=== PATIENT | male | born 1955 | race Caucasian/White ===

== ENCOUNTER 2016-08-25 07:30 | Emergency (ER) | payer BC ==
[2016-08-25 07:56] VITALS: BP 131/82
--- NOTE | 2016-08-25 08:07 | UC ---
Leatha Simons Alok, scribed for Tl Ahumada MD on 08/25/16 at 0756 . Upper Extremity HPI - HPI Summary HPI Summary: 61M presents to the [facility] with swelling on his right elbow. 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 Pt denies pain or erythema. Pt states he has had this swelling before and was said to be gout related. PMHx includes HTN and HTD. PSHx includes triple hernia and ankle fusion. - History of Current Complaint Stated Complaint: ELBOW COMPLAINT-SWELLING Time Seen by Provider: 08/25/16 07:43 Hx Obtained From: Patient ?: No Onset/Duration: Gradual Onset, Lasting Days, Still Present Severity Initially: Moderate Severity Currently: Moderate Pain Intensity: 0 Pain Scale Used: 0-10 Numeric Location Of Pain: Is Discrete @ - right elbow Aggravating Factor(s): Movement Associated Signs And Symptoms: Positive: Swelling. Negative: Redness - Allergies/Home Medications Allergies/Adverse Reactions: Allergies Allergy/AdvReac Type Severity Reaction Status Date / Time No Known Allergies Allergy Verified 08/25/16 07:44 Home Medications: Home Medications Lisinopril/HCTZ 20/12.5(NF) [Zestoretic 20/12.5(NF)] 1 tab PO DAILY 08/25/16 [ History Confirmed 08/25/16] Meloxicam 7.5 mg PO BID 08/25/16 [History Confirmed 08/25/16] PMH/Surg Hx/FS Hx/Imm Hx Endocrine History Of: Denies: Diabetes Cardiovascular History Of: Denies: Hypertension, Pacemaker/ICD GI/ History Of: Denies: Renal Disease - Surgical History Surgical History: Yes Surgery Procedure, Year, and Place: 1992 TRIPLE HERNIA [id number] Rt ANKLE FUSEDHAND - Family History Known Family History: Positive: Other - No - Malignant Hypothermia - Social History Occupation: Employed Full-time Lives: With Family Alcohol Use: Occasionally Substance Use Type: None Smoking Status (MU): Former Smoker Type: Cigarettes Have You Smoked in the Last Year: No Review of Systems Constitutional: Negative Skin: Other - swelling right elbow All Other Systems Reviewed And Are Negative: Yes Physical Exam Triage Information Reviewed: Yes Appearance: Well-Appearing, No Pain Distress, Well-Nourished Vital Signs: Initial Vital Signs Temp 97.6 F 08/25/16 07:47 Pulse 78 08/25/16 07:47 Resp 16 08/25/16 07:47 BP 131/82 08/25/16 07:47 Pulse Ox 98 08/25/16 07:47 Eye Exam: Normal ENT Exam: Normal Respiratory: Positive: Lungs clear, Normal breath sounds, No respiratory distress Cardiovascular: Positive: RRR, No Murmur Musculoskeletal: Positive: Other: - The right elbow is with effusion to the olecranon bursa. There is no increased warmth, no redness, and no pain at all on range of motion. He has no effusion of the elbow joint itself. Neuro vasc intact right hand. Neurological: Positive: Alert Psychological: Positive: Age Appropriate Behavior Skin Exam: Normal Upper Extremity Course/Dx - Course Course Of Treatment: 61 yr old male with effusion right olecrenon bursa elbow that is from overuse. Not infected at this point and not painful. recommend leave alone today, and cool compresses. Use is NSAID he has, and he can see Dr Angeles, his orthopedic surgeon in follow up. - Differential Dx/Diagnosis Provider Diagnoses: Right elbow, olecranon bursitis with effusion of olecranon bursa Discharge - Discharge Plan Condition: Good Disposition: HOME Patient Education Materials: Elbow Bursitis (ED) Referrals: Bill Angeles MD [Medical Doctor] - Bill Manley MD [Primary Care Provider] - 1 Day The documentation as recorded by the Leatha donahue Alok accurately reflects the service I personally performed and the decisions made by , Tl Ahumada MD.
== END 2016-08-25 08:09 | disposition home or self-care (01) ==
LOC: UCEAST 07:30
DX: M70.821 Other soft tissue disorders related to use, overuse and pressure, right upper arm (principal); Y93.89 Activity, other specified; M25.421 Effusion, right elbow; Z87.891 Personal history of nicotine dependence
CPT/HCPCS: 99211; G0463

== ENCOUNTER 2017-01-13 07:08 | Emergency (ER) | payer BC ==
[2017-01-13 07:24] VITALS: BP 111/70
--- NOTE | 2017-01-13 07:46 | UC ---
Dex Simons Angela, scribed for Nova Arriaga MD on 01/13/17 at 0734 . Upper Extremity HPI - HPI Summary HPI Summary: This pt is a 61 y/o male presenting to [facility] c/o erythematous right forearm x1 day. 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 He states that he had just drawn the vaccine into the needle but had not vaccinated the cattle yet. Pt notes initially his arm became swollen and it was fine for 2 days. He noticed last night, his right forearm became erythematous but it is not tender. Pt has an upcoming knee surgery on 01/25/[address] Mayfield for a meniscus tear and has a pre-op appointment next week. He is concerned that this may interfere with his upcoming surgery. Pt denies fever, chills, headaches. PMHx: HTN (currently takes lisinopril). NKDA. Tetanus up to date, confirmed by PMD earlier this week. 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 Previously Healthy: Yes Other Endocrine History: DENIES: diabetes Cardiovascular History: Hypertension - Surgical History Surgical History: Yes Surgery Procedure, Year, and Place: 1992 TRIPLE HERNIA. 2010 Rt ANKLE FUSION - Family History Known Family History: Positive: Other - No - Malignant Hypothermia. Father of Alzheimer's disease Family History: Father: Alzheimer's disease. - Social History Occupation: Employed Full-time Lives: With Family Alcohol Use: Occasionally Substance Use Type: None Smoking Status (MU): Former Smoker Type: Cigarettes Have You Smoked in the Last Year: No Review of Systems Constitutional: Negative Skin: Other - erythematous right forearm Eyes: Negative ENT: Negative Respiratory: Negative Cardiovascular: Negative Gastrointestinal: Negative Genitourinary: Negative Motor: Negative Neurovascular: Negative Musculoskeletal: Arthralgia - pending knee arthroscopy, Other: - RUE: swollen right forearm. Neurological: Negative Psychological: Negative Is Patient Immunocompromised?: No All Other Systems Reviewed And Are Negative: Yes Physical Exam Triage Information Reviewed: Yes Appearance: Well-Appearing, No Pain Distress Vital Signs: Initial Vital Signs Temp 98.5 F 01/13/17 07:17 Pulse 67 01/13/17 07:17 Resp 16 01/13/17 07:17 BP 111/70 01/13/17 07:17 Pulse Ox 98 01/13/17 07:17 ENT Exam: Normal ENT: Positive: Hearing grossly normal Neck exam: Normal Neck: Positive: Supple, Nontender, No Lymphadenopathy Respiratory: Positive: Lungs clear, Normal breath sounds Cardiovascular: Positive: RRR, No Murmur Musculoskeletal: Positive: Strength Intact - at right elbow, with full painfree rom Neurological Exam: Normal Psychological Exam: Normal Skin Exam: Other - 14 x 11 cm area of erythema, mildly tender primarily at site of PW, which is about 3 cm inferior to the medial epicondyle. No lymphagitis. No axillary adenopathy. 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 Pt medications reviewed this visit. - Differential Dx/Diagnosis Provider Diagnoses: puncture wound with early cellulitis. Discharge - Discharge Plan Condition: Stable Disposition: HOME Prescriptions: Cephalexin CAP* [Keflex 500 CAP*] 500 mg PO TID #21 cap Patient Education Materials: Cellulitis (ED) Referrals: Vineet FERREIRA,Bill New [Primary Care Provider] - Additional Instructions: The area of redness is suspicious of an early cellulitis. Begin cephalexin 500mg three times daily. You have a 7 day supply, but if the redness regresses quickly (within 48 hours) you can stop the antibiotic after 5 days. You have follow up with Dr. Mayfield on Sunday, and Dr. Manley later in the week. The dimensions of the redness today are 14 x 11 cm. The documentation as recorded by the Dex donahue Angela accurately reflects the service I personally performed and the decisions made by me, Nova Arriaga MD.
== END 2017-01-13 07:45 | disposition home or self-care (01) ==
LOC: UCEAST 07:08
DX: S51.831A Puncture wound without foreign body of right forearm, initial encounter (principal); L03.113 Cellulitis of right upper limb; W26.8XXA Contact with other sharp object(s), not elsewhere classified, initial encounter; Y93.9 Activity, unspecified; Y92.9 Unspecified place or not applicable; Y99.9 Unspecified external cause status
CPT/HCPCS: 99212; G0463

== ENCOUNTER 2017-01-25 05:59 | Day surgery (SDC) | payer BC ==
--- NOTE | 2017-01-15 16:25 | HP ---
HISTORY AND PHYSICAL: DATE OF ADMISSION/SURGERY: 01/25/17. DATE OF OFFICE VISIT: 01/15/17. SURGEON: Urvashi Mayfield MD * (DICTATED BY YARI VASQUEZ) PROCEDURE: Left knee arthroscopy with partial medial meniscectomy, possible chondroplasty, possible synovectomy. CHIEF COMPLAINT: Left knee pain. HISTORY OF PRESENT ILLNESS: Mr. Polk is a 61-year-old gentleman with complaints of left knee pain. MRI shows a medial meniscus tear. He has elected to proceed with left knee arthroscopy with partial medial meniscectomy. PAST MEDICAL HISTORY: 1. Hypertension. 2. High cholesterol. 3. GERD. PAST SURGICAL HISTORY: Hernia repair and right ankle fusion. CURRENT MEDICATIONS: 1. Nexium 40 mg daily. 2. Atorvastatin calcium 10 mg daily. 3. Lisinopril/hydrochlorothiazide 20/12.5 mg daily. 4. Tamsulosin 0.4 mg daily. ALLERGIES: No known drug allergies. FAMILY HISTORY: Denies. SOCIAL HISTORY: This 61-year-old gentleman lives with his . He is a summers. He does not smoke or use drugs. He uses occasional alcohol. REVIEW OF SYSTEMS: A complete 14-point review of systems was reviewed with the patient was all negative and noncontributory. PHYSICAL EXAMINATION GENERAL: Well developed, well nourished, in no acute distress. VITAL SIGNS: He stands 5 feet 9 inches tall, weighs 175 pounds. His blood pressure 120/82, heart rate 60. HEENT: Normocephalic, atraumatic. NECK: Supple. No palpable lymph nodes. PULMONARY: Lungs are clear to auscultation bilaterally. CARDIAC: Regular rate and rhythm. Strong S1, and S2. ABDOMEN: Soft, nontender, and nondistended. MUSCULOSKELETAL: Left lower extremity, the skin is intact. There are no open wounds or abrasions. There is a mild joint effusion. Tenderness over the medial joint line. Positive Apley's. Positive Sadie. Negative Jennifer. No varus or valgus instability. 2+ dorsalis pedis pulses. His lower extremity muscle group strength is intact at 5/5. NEUROLOGIC: Alert and oriented x3. Cranial nerves II through XII are intact. ASSESSMENT AND PLAN: Mr. Polk is a 61-year-old gentleman with complaints of left knee pain secondary to a medial meniscus tear. He has elected to proceed with left knee arthroscopy with partial medial meniscectomy, possible chondroplasty, possible synovectomy. The surgery is scheduled for with Dr. Mayfield. Dr. Mayfield discussed the risks and benefits of the surgery at today's visit and all of his questions were answered. He will follow up with Dr. Mayfield 2 weeks after the surgery. YARI VASQUEZ [id number]/[facility] #: [id number] MTDKimberly
[~2017-01-25 05:59] MED LIST: Buffered Lidocaine 0.9% SYRIN* 5 ML/SYR SYRINGE INTRADERM ONE
[2017-01-25] MEDS ORDERED: Buffered Lidocaine 0.9% SYRIN* 5 ML/SYR SYRINGE ONE (06:03)
[2017-01-25] MEDS ORDERED: ceFAZolin 2 GM PREMIX (*) 2 GM/50 ML BAG IVPB ONE (06:03)
[2017-01-25] MEDS ORDERED: EPINEPHrine AMP 1 MG/ML ONE (07:01)
[2017-01-25] MEDS ORDERED: fentaNYL* 50 MCG/ML 2 ML VIAL (100 MCG VIAL) ONE ×2 (07:12→08:13)
[2017-01-25] MEDS ORDERED: Midazolam* 1 MG/ML 2 ML VIAL (2 MG) ONE (07:12)
[2017-01-25] MEDS ORDERED: methylPREDNISolone ACETATE 80* 80 MG/ML 1 ML VIAL ONE (07:17)
[2017-01-25] MEDS ORDERED: Bupivacaine 0.5% SDV PF* 30 ML VIAL ONE (07:17)
[2017-01-25] MEDS ORDERED: Ketorolac INJ* 30 MG/ML 1 ML VIAL ONE (07:33)
[2017-01-25] MEDS ORDERED: Propofol* 10 MG/ML 20 ML BTL IV PUSH ONE (07:33)
[2017-01-25] MEDS ORDERED: Famotidine IV* 10 MG/ML 2 ML (20 mg) ONE (07:33)
[2017-01-25] MEDS ORDERED: Dexamethasone IV* 4 MG/ML 1 ML (4 MG) ONE ×2 (07:33→07:59)
[2017-01-25] MEDS ORDERED: fentaNYL* 50 MCG/ML 2 ML VIAL (100 MCG VIAL) IV PRN (08:10)
[2017-01-25] MEDS ORDERED: Ondansetron INJ* 2 MG/ML VIAL IV PRN (08:10)
[2017-01-25] MEDS ORDERED: HYDROcodone/ACETAMIN 5-325 MG* 1 TAB PO PRN (08:10)
[2017-01-25] MEDS ORDERED: PROCHLORPERAZINE INJ 5 MG/ML 2 ML VIAL IV PRN (08:10)
[2017-01-25] MEDS ORDERED: DiMENhydriNATE IV* 50 MG/ML VIAL IV PUSH PRN (08:10)
[2017-01-25] MEDS ORDERED: Acetaminophen TAB* 325 MG PO PRN (08:10)
[2017-01-25] MEDS ORDERED: Succinylcholine* 20 MG/ML 10 ML VIAL ONE (08:24)
[2017-01-25 10:00] VITALS: BP 156/93
--- NOTE | 2017-01-26 07:06 | OP ---
OPERATIVE REPORT: DATE OF OPERATION: 01/25/17 - SDS DATE OF : 57 ATTENDING SURGEON: Urvashi Mayfield MD FILLING CARRIER: YARI Khan Ms. did help throughout the procedure with preparation of the leg, wound retraction, and wound closure. ANESTHESIOLOGIST: Dr. Gamboa. ANESTHESIA: General. PRE-OP DIAGNOSIS: Left knee medial meniscal tear, [id number] osteoarthritis. POST-OP DIAGNOSES: Left knee posterior radial medial meniscal tear, moderate-to - severe medial compartment osteoarthritis, [id number]-crfmqapj patellofemoral osteoarthritis. OPERATIVE PROCEDURE: Left knee arthroscopy with partial medial meniscectomy ___ ___. ESTIMATED BLOOD LOSS: Less than 25 cc. COMPLICATIONS: None. SPECIMENS: None. DICTATIONS ENDS HERE [id number]/[facility] #: [id number] MTDD
--- NOTE | 2017-01-26 20:58 | OP ---
DATE OF OPERATION: 01/25/17 [facility] DATE OF : 57 ATTENDING SURGEON: Urvashi Mayfield MD VENDING ATTENDANT: YARI Khan. Ms. Valenzuela did help throughout the procedure with preparation of the leg, wound retraction, manipulation of the knee, and wound closure. ANESTHESIOLOGIST: Dr. Gamboa. ANESTHESIA: General. PRE-OP DIAGNOSES: Left knee medial meniscal tear, [id number]-up-yvbihpmi osteoarthritis. POST-OP DIAGNOSES: Left knee medial meniscal tear, wbepnqyg-mw-clrdjr medial compartment osteoarthritis, [id number]-hy-tdawczhr patellofemoral osteoarthritis. OPERATIVE PROCEDURE: Left knee arthroscopy with partial medial meniscectomy and medial chondroplasty. COMPLICATIONS: None. ESTIMATED BLOOD LOSS: Less than 25 cc. SPECIMEN: None. BRIEF HISTORY/INDICATION: Mr. Polk is a 61-year-old gentleman with years of intermittent left knee pain. Over the last few months, he developed a more acute catching and sharp pain along the medial joint line. MRI confirmed medial meniscus tear. Conservative treatment failed him and he elected to undergo left knee arthroscopy with partial medial meniscectomy. Informed consent was obtained from the patient. He understood the risks of surgery included, but were not limited to bleeding, infection, damage to nearby structures, continued pain, need for further surgery, retear of the meniscus, stroke, heart attack, blood clot, and . He wished to proceed. INTRAOPERATIVE FINDINGS: Intraoperatively, the patient was noted to have a radial type tear in the posterior third of the medial meniscus, this involved the white- red zone. He also had severe degenerative changes noted of the medial femoral condyle. Some grade 3 and 4 Outerbridge cartilage changes along the entire weightbearing portion of the medial femoral condyle, grade 2 and 3 Outerbridge cartilage changes in the patellofemoral compartment. DESCRIPTION OF PROCEDURE: Mr. Polk was identified in the preanesthesia unit. His left lower extremity was marked as the correct operative side. Informed consent was signed and placed in the chart. The patient was taken to the operating room and placed under general anesthesia. Left lower extremity was prepped and draped in the usual sterile fashion. Preop time-out was made to correctly identify the patient's side and site. Appropriate perioperative antibiotics were given within 1 hour of incision. A 0.5 cm standard anterolateral portal incision was made with a 15 blade and carried down to the capsule. Trocar was introduced. As soon as the light and water sources were turned on, there was immediate visualization of the suprapatellar pouch. A tour of the knee joint was performed. Suprapatellar pouch had no obvious abnormalities. The patellofemoral compartment showed grade 2 and 3 Outerbridge cartilage changes along the femoral trochlear groove as well as the medial and lateral patellar facets. Medial gutter had no loose body or significant plica. Medial compartment showed extreme loss of cartilage along the medial femoral condyle, this is grade 3 and 4 Outerbridge cartilage changes with exposed subchondral bone and cartilage flapping. Posterior medial meniscus showed a meniscal tear. ACL and PCL appeared to be intact. The knee was placed in a figure- of-four position and lateral compartment was viewed. The meniscus was intact. No significant degenerative changes. Lateral gutter showed no loose body or plica. Under direct visualization, a medial portal incision was made with a 15 blade. Probe was introduced and a second tour of the knee joint was performed. No further findings were noted. Shaver and radiofrequency ablation wand were used to remove some anterior synovitis. Next, the radiofrequency ablation wand was used to perform chondroplasty. Any smooth loose flaps of cartilage along the medial femoral condyle were removed carefully and conservatively. Next, a straight biter was used to perform partial medial meniscectomy. Posterior one third of the meniscus had a radial tear involving the white-red zone. This was carefully excised. A smooth border was obtained along the meniscus. The knee was copiously irrigated with sterile saline. All instruments were carefully removed. The incisions were closed using interrupted 3-0 nylon suture. An intraarticular injection of 80 mg Depo-Medrol and 6 cc of 0.25% Marcaine was placed in the knee joint. The incisions were covered with Xeroform , 4x4s, and Webril. Prashanth wrap and cold pack were placed over this. The patient's anesthesia was reversed without difficulty. He was taken to the PACU in stable condition. Intended weightbearing will be weightbearing as tolerated. Intended DVT prophylaxis will be Coumadin with a Lovenox bridge. [id number]/[facility] #: [id number] [facility]OL[facility] CHILDREN'S HOSPITALKimberly
== END 2017-01-25 09:58 | disposition home or self-care (01) ==
LOC: OR 05:59
PROVIDERS: ATTEND Orthopaedic Surgery Adult Reconstructive Orthopaedic Surgery
DX: M23.222 Derangement of posterior horn of medial meniscus due to old tear or injury, left knee (principal); M17.12 Unilateral primary osteoarthritis, left knee; I10 Essential (primary) hypertension; E78.00 Pure hypercholesterolemia, unspecified; K21.9 Gastro-esophageal reflux disease without esophagitis; R35.0 Frequency of micturition
CPT/HCPCS: J0171; J0330; J0690; J1040; J1100; J1885; J2250; J2704; J3010

== ENCOUNTER 2019-01-20 05:24 | Emergency (ER) | payer BC ==
[2019-01-20] MEDS ORDERED: Morphine 4 MG/ML VIAL (1 ml) 4 MG/ML VIAL IV ONE (05:54)
[2019-01-20] MEDS ORDERED: Ondansetron INJ* 2 MG/ML VIAL IV ONE (05:55)
[2019-01-20 06:12] LABS: ABS Lymphocytes 0.6 10^3/ul (1.0-4.8); ABS Monocytes 0.3 10^3/ul (0-0.8); ABS Neutrophils 9.7 10^3/ul (1.5-7.7); Eosinophil % 0.1 %; Hematocrit 46 % (42-52); Hemoglobin 16.1 g/dL (14.0-18.0); Lymphocyte % 5.6 %; Mean Corpuscular HGB Conc 35 g/dL (31-36); Mean Corpuscular Hemoglobin 30 pg (27-31); Mean Corpuscular Volume 86 fL (80-94); Mean Platelet Volume 7.4 fL (7.4-10.4); Platelet Count 210 10^3/uL (150-450); Red Blood Count 5.35 10^6 /uL (4.18-5.48); Red Cell Distribution Width 14 % (10-15); White Blood Count 10.7 10^3/uL (3.5-10.8)
[2019-01-20] MEDS ORDERED: NS 0.9% 1000 ML** 1,000 ML IV ONE (06:14)
[2019-01-20 06:33] LABS: Albumin 4.7 g/dL (3.2-5.2); Albumin/Globulin Ratio 1.9 (1-3); BUN/Creatinine Ratio 25.6 (8-20); C Reactive Protein 10.42 mg/L (<8.01); Calcium 9.6 mg/dL (8.6-10.3); EGFR African American 103.5 (>60); EGFR Non-African American 85.5 (>60); Globulin 2.5 g/dL (2-4); Magnesium 1.7 mg/dL (1.9-2.7); Potassium 3.6 mmol/L (3.5-5.0); Total Bilirubin 1.3 mg/dL (0.2-1.0); Total Protein 7.2 g/dL (6.4-8.9)
[2019-01-20] MEDS ORDERED: Iohexol 300* (CONTRAST) 10 ML SDV IV ONE (06:40)
[2019-01-20] MEDS ORDERED: Magnesium Sulfate 2 GM IV* 2 GM/50 ML BAG IVPB ONE (07:07)
--- NOTE | 2019-01-20 07:23 | ED ---
Abdominal Pain/Male - HPI Summary HPI Summary: this patient is a 63-year-old male with a history of hypercholesterolemia, GERD presenting to the ED with diffuse abdominal pain, nausea, vomiting 2 days. He states he began to have abdominal pain 2 evenings ago right before bed, he was able to go to bed, however awoke with nausea and vomiting. This was mild and he was able to go to eat pot roast yesterday afternoon with his family. He states following this, his abd pain worsened and he had more profuse abd pain, n /v. Endorses diaphoresis and chills. Endorses subjective fevers. 3 previous hernia repairs. Continues to be able to pass gas and denies any burping. Since arrival at the hosp, pt states he is improving. Nausea rated 3/10, and pain rated a 5/10. Also endorsing leg spasms to the R leg and is concerned for electrolyte abnormalities. Last BM this morning prior to arrival which was still loose but improved since yesterday. No vomiting since yesterday evening around 10 pm. No urinary sxs or back pain. - History of Current Complaint Chief Complaint: EDNauseaVomitDiarrh Stated Complaint: ABD PAIN/VOMITING PER PT Time Seen by Provider: 01/20/19 05:56 Hx Obtained From: Patient Onset/Duration: Sudden Onset Timing: Constant Severity Initially: Moderate Severity Currently: Mild Pain Intensity: 5 Pain Scale Used: 0-10 Numeric Location: Diffuse Radiates: No Character: Cramping, Tearing Aggravating Factor(s): Food Alleviating Factor(s): Nothing Associated Signs And Symptoms: Positive: Negative, Nausea, Vomiting, Diarrhea - Risk Factors Testicular Torsion: Negative - Allergies/Home Medications Allergies/Adverse Reactions: Allergies Allergy/AdvReac Type Severity Reaction Status Date / Time No Known Allergies Allergy Verified 01/20/19 05:28 PMH/Surg Hx/FS Hx/Imm Hx Previously Healthy: Yes Endocrine/Hematology History: Denies: Hx Diabetes, Hx Thyroid Disease Cardiovascular History: Reports: Hx Hypercholesterolemia, Hx Hypertension - taking meds Denies: Hx Pacemaker/ICD Respiratory History: Denies: Hx Asthma, Hx Chronic Obstructive Pulmonary Disease (COPD) GI History: Reports: Hx Gastroesophageal Reflux Disease - Taking nexium Denies: Hx Ulcer History: Denies: Hx Renal Disease Musculoskeletal History: Reports: Hx Arthritis - general, Hx Back Problems, Other Musculoskeletal History Sensory History: Reports: Hx Contacts or Glasses - glasses for reading Denies: Hx Hearing Aid Opthamlomology History: Reports: Hx Contacts or Glasses - glasses for reading Neurological History: Reports: Other Neuro Impairments/Disorders - PAIN CLINIC PT Psychiatric History: Denies: Hx Panic Disorder - Surgical History Surgery Procedure, Year, and Place: 1992 TRIPLE HERNIA. 2010 Rt ANKLE FUSION. 2017 - left meniscus repair Hx Anesthesia Reactions: No - Immunization History Hx Pertussis Vaccination: No Immunizations Up to Date: Yes Infectious Disease History: No Infectious Disease History: Denies: Hx Clostridium Difficile, Hx Hepatitis, Hx Human Immunodeficiency Virus (HIV), Hx of Known/Suspected MRSA, Hx Shingles, Hx Tuberculosis, Hx Known/ Suspected VRE, Hx Known/Suspected VRSA, Traveled Outside the [place] in Last 30 Days - Family History Known Family History: Positive: Other - No - Malignant Hypothermia. Father of Alzheimer's disease Family History: Father: Alzheimer's disease. - Social History Occupation: Employed Full-time Lives: With Family Alcohol Use: Weekly Alcohol Amount: 5 Hx Substance Use: No Substance Use Type: Reports: None Hx Tobacco Use: Yes Smoking Status (MU): Former Smoker Type: Cigarettes Amount Used/How Often: 1/2 ppd Have You Smoked in the Last Year: No Review of Systems Positive: Chills, Skin Diaphoresis. Negative: Fever, Fatigue Negative: Palpitations, Chest Pain Negative: Shortness Of Breath, Cough Positive: Abdominal Pain, Vomiting, Diarrhea, Nausea Genitourinary: Negative Positive: no symptoms reported, see HPI Negative: Arthralgia, Myalgia Skin: Negative All Other Systems Reviewed And Are Negative: Yes Physical Exam Triage Information Reviewed: Yes Vital Signs On Initial Exam: Initial Vitals Temp Pulse Resp BP Pulse Ox 98.1 F 88 20 118/88 97 01/20/19 05:25 01/20/19 05:25 01/20/19 05:25 01/20/19 05:25 01/20/19 05:25 Vital Signs Reviewed: Yes Appearance: Positive: Well-Appearing, Well-Nourished Skin: Positive: Skin Color Reflects Adequate Perfusion Head/Face: Positive: Normal Head/Face Inspection Eyes: Positive: EOMI, ROSIBEL, Conjunctiva Clear Neck: Positive: Supple, Nontender, No Lymphadenopathy Respiratory/Lung Sounds: Positive: Clear to Auscultation, Breath Sounds Present Cardiovascular: Positive: RRR, Pulses are Symmetrical in both Upper and Lower Extremities. Negative: Leg Edema Left, Leg Edema Right Abdomen Description: Negative: CVA Tenderness (R), CVA Tenderness (L), Distended , Guarding Bowel Sounds: Positive: Present Musculoskeletal: Positive: Normal, Strength/ROM Intact Neurological: Positive: Speech Normal Psychiatric: Positive: Affect/Mood Appropriate AVPU Assessment: Alert Procedures - Sedation Patient Received Moderate/Deep Sedation with Procedure: No Diagnostics - Vital Signs Vital Signs Temp Pulse Resp BP Pulse Ox 01/20/19 07:10 74 99 01/20/19 07:08 74 134/85 99 01/20/19 06:37 65 127/62 95 01/20/19 06:18 17 01/20/19 06:07 124/80 01/20/19 06:00 84 96 01/20/19 05:36 91 138/78 96 01/20/19 05:25 98.1 F 88 20 118/88 97 - Laboratory Lab Results: Lab Results 01/20/19 01/20/19 01/20/19 Range/Units 06:05 06:05 06:05 WBC 10.7 (3.5-10.8) 10^3/uL RBC 5.35 (4.18-5.48) 10^6 /uL Hgb 16.1 (14.0-18.0) g/dL Hct 46 (42-52) % MCV 86 (80-94) fL MCH 30 (27-31) pg MCHC 35 (31-36) g/dL RDW 14 (10-15) % Plt Count 210 (150-450) 10^3/uL MPV 7.4 (7.4-10.4) fL Neut % (Auto) 91.0 % Lymph % (Auto) 5.6 % [place] % (Auto) 2.9 % Eos % (Auto) 0.1 % Baso % (Auto) 0.4 % Absolute Neuts (auto) 9.7 H (1.5-7.7) 10^3/ul Absolute Lymphs (auto) 0.6 L (1.0-4.8) 10^3/ul Absolute Monos (auto) 0.3 (0-0.8) 10^3/ul Absolute Eos (auto) 0.0 (0-0.6) 10^3/ul Absolute Basos (auto) 0.0 (0-0.2) 10^3/ul Absolute Nucleated RBC 0.0 10^3/ul Nucleated RBC % 0.0 Sodium 135 (135-145) mmol/L Potassium 3.6 (3.5-5.0) mmol/L Chloride 99 L (101-111) mmol/L Carbon Dioxide 26 (22-32) mmol/L Anion Gap 10 (2-11) mmol/L BUN 23 (6-24) mg/dL Creatinine 0.90 (0.67-1.17) mg/dL Est GFR ( Amer) 103.5 (>60) Est GFR (Non-Af Amer) 85.5 (>60) BUN/Creatinine Ratio 25.6 H (8-20) Glucose 144 H (70-100) mg/dL Lactic Acid 1.0 (0.5-2.0) mmol/L Calcium 9.6 (8.6-10.3) mg/dL Magnesium 1.7 L (1.9-2.7) mg/dL Total Bilirubin 1.30 H (0.2-1.0) mg/dL AST 32 (13-39) U/L ALT 25 (7-52) U/L Alkaline Phosphatase 59 (34-104) U/L C-Reactive Protein 10.42 H (<8.01) mg/L Total Protein 7.2 (6.4-8.9) g/dL Albumin 4.7 (3.2-5.2) g/dL Globulin 2.5 (2-4) g/dL Albumin/Globulin Ratio 1.9 (1-3) Lipase 35 (11.0-82.0) U/L Result Diagrams: 01/20/19 06:05 01/20/19 06:05 Lab Statement: Any lab studies that have been ordered have been reviewed, and results considered in the medical decision making process. Abdominal Pain Male Course/Dx - Course Course Of Treatment: Vital signs on arrival are stable at 98.1, heart rate 88, respirations 20, O2 sat 97% on room air and 118/88. Patient appears well, nondiaphoretic and nontoxic in appearing. He states he is feeling much improved since prior to arrival. Last bowel movement was just before arrival and has not had vomiting since last night. Labs obtained: This shows no elevated white count, glucose of 144, hypomagnesemia at 1.7 and a bilirubin of 1.3. CRP is 10.4 to, normal lipase at 35. A CT abdomen/pelvis was obtained: IMPRESSION: Atherosclerotic disease of the abdominal aorta. There is a bilobed fusiform. infrarenal abdominal aortic aneurysm measuring 4.1 cm in diameter. Diverticulosis of the colon. No evidence of acute diverticulitis. Enlarged prostate with findings suggestive of bladder outlet obstruction. Mild hepatomegaly and steatosis. While in the ED, patient is given fluids, morphine , Zofran with good relief. UA obtained: negative for acute findings. Pt was informed regarding the incidental findings of aortic aneurysm while in the ED. Pt remains asymptomatic of symptoms and continues to deny n/v/d. He is encouraged close f/u with PCP and cardiology (referral given.) Zofran rx to pharmacy. Encouraged fluids, slow PO intake and BRAT diet. Mag glycinate 400mg at bedtime for cramping recommended. - Diagnoses Differential Diagnosis/HQI/PQRI: Bowel Obstruction, Constipation, Diverticulitis , Pancreatitis Provider Diagnoses: Nausea & vomiting, Abdominal pain, Aortic aneurysm, Leg cramping, Hypomagnesemia Discharge ED - Sign-Out/Discharge Documenting (check all that apply): Patient Departure - Discharge Plan Condition: Stable Disposition: HOME Prescriptions: Ondansetron ODT TAB* [Zofran 4 MG Odt TAB*] 4 mg PO Q6H PRN #12 tab.odt MDD 4 PRN Reason: Nausea Patient Education Materials: Nonruptured Abdominal Aortic Aneurysm (DC), Acute Nausea and Vomiting (ED), Leg Cramps (ED) Referrals: Ronny Alvarez MD [Medical Doctor] - Vineet FERREIRA,Bill New [Primary Care Provider] - 3 Days Additional Instructions: Magnesium Glycinate 400mg at bedtime may help with muscle cramps Increase fluid intake Please follow up with PCP or cardiology regarding the findings of your aortic aneurysm Zofran has been prescribed to you for any nausea Introduce foods slowly back into your diet Chicken noodle soup, rice, bananas, applesauce - Billing Disposition and Condition Condition: STABLE Disposition: Home
[2019-01-20 07:27] LABS: Urine Appearance Clear; Urine Bilirubin Negative (Negative); Urine Blood Negative (Negative); Urine Color Straw; Urine Glucose Negative (Negative); Urine Ketones Negative (Negative); Urine Nitrite Negative (Negative); Urine Protein Negative (Negative); Urine Specific Gravity 1.027 (1.010-1.030); Urine Urobilinogen Negative (Negative)
[2019-01-20 08:28] VITALS: BP 127/82
== END 2019-01-20 08:28 | disposition home or self-care (01) ==
LOC: ED 05:24
DX: I71.9 Aortic aneurysm of unspecified site, without rupture (principal); R10.9 Unspecified abdominal pain; E83.42 Hypomagnesemia; R25.2 Cramp and spasm; Z87.891 Personal history of nicotine dependence; R11.2 Nausea with vomiting, unspecified
CPT/HCPCS: 36415; 74177; 80053; 81003; 83605; 83690; 83735; 85025; 86140; 96361; 96365; 96375; 99283; J2270; J2405; J3475; Q9967

== ENCOUNTER 2022-02-21 07:30 | Observation (INO) ==
[~2022-02-21 07:30] MED LIST changes: -Buffered Lidocaine 0.9% SYRIN* 5 ML/SYR SYRINGE INTRADERM ONE; +Buffered Lidocaine 1% SYRIN 1 ml INTRADERM ONE; +Lactated Ringers 1000 ml BAG 1,000 ML IV SCH
[2022-02-21] MEDS ORDERED: ceFAZolin 1 GM in Dextrose 2 GM/100 ML BAG ONE (09:04)
[2022-02-21] MEDS ORDERED: Prochlorperazine 5 mg/ml 2 ml VIAL (10 mg) IV PRN (10:53)
[2022-02-21] MEDS ORDERED: Ondansetron 4 mg VIAL 2 MG/ML 2 ml VIAL IV PRN ×2 (10:53→13:15)
[2022-02-21] MEDS ORDERED: Naloxone 0.4 mg VIAL 0.4 mg/ml 1 ml VIAL IV PRN (10:53)
[2022-02-21] MEDS ORDERED: fentaNYL 100 mcg/2 ml 50 MCG/ML VIAL IV PRN (10:53)
[2022-02-21] MEDS ORDERED: Propofol 10 MG/ML 20 ML BTL ONE (11:00)
[2022-02-21] MEDS ORDERED: Lidocaine 2% PF 5 ML VIAL ONE (11:00)
[2022-02-21] MEDS ORDERED: Rocuronium 50 mg VIAL 10 mg/ml 5 ml VIAL (50 mg) ONE ×2 (11:01→11:39)
[2022-02-21] MEDS ORDERED: Midazolam 2 mg/2 ml VIAL 1 mg/ml 2 ml VIAL (2 mg) ONE (11:01)
[2022-02-21] MEDS ORDERED: fentaNYL 250 mcg/5 ml 50 MCG/ML 5 ml VIAL (250 MCG) ONE (11:01)
[2022-02-21] MEDS ORDERED: ceFAZolin VIAL VIAL ONE (11:24)
[2022-02-21] MEDS ORDERED: HYDROmorphone 0.5 MG/0.5 ML SYRINGE ONE (11:29)
[2022-02-21] MEDS ORDERED: ROPIVACAINE 5 MG/ML 30 ML BTL (0.5%) ONE (11:39)
[2022-02-21] MEDS ORDERED: Ondansetron 4 mg VIAL 2 MG/ML 2 ml VIAL ONE (12:15)
[2022-02-21] MEDS ORDERED: Dexamethasone IV 4 MG/ML VIAL 1 ml VIAL ONE (12:15)
[2022-02-21] MEDS ORDERED: Acetaminophen IV 1 GM/100ML 1,000 MG/100 ML BAG IV ONE (12:16)
[2022-02-21] MEDS ORDERED: Sugammadex 500 MG/5 ML 5 ml VIAL IV PUSH ONE (12:26)
[2022-02-21] MEDS ORDERED: Phenylephrine 40 mcg/mL 10mL (400mcg) SYRINGE ONE (12:31)
[2022-02-21] MEDS ORDERED: Ropivacaine 5 MG/ML 20 ML VIAL 0.5% (100 MG) ONE (12:47)
[2022-02-21] MEDS ORDERED: Morphine 2 MG/ML SYRINGE IV PRN (13:15)
[2022-02-21] MEDS ORDERED: Magnesium Hydroxide LIQ 30 ML UDC PO PRN (13:15)
[2022-02-21] MEDS ORDERED: Ondansetron ODT 4 mg TAB 4 MG TAB PO PRN (13:15)
[2022-02-21] MEDS ORDERED: Lactulose 30 ml UDC PO PRN (13:15)
[2022-02-21] MEDS: Lactated Ringers 1000 ml BAG 1,000 ML IV SCH (14:43)
[2022-02-21] MEDS: ceFAZolin 1 GM ADVAN 1 GM in NS 0.9% 50 ML 50 ML IVPB SCH (20:09)
[2022-02-21] MEDS: Magnesium Hydroxide LIQ 30 ML UDC PO SCH (20:23)
[2022-02-22] MEDS: Lactated Ringers 1000 ml BAG 1,000 ML IV SCH (01:20)
[2022-02-22] MEDS: ceFAZolin 1 GM ADVAN 1 GM in NS 0.9% 50 ML 50 ML IVPB SCH ×2 (03:18→11:31)
[2022-02-22 07:02] LABS: Hematocrit 38 % (42-52); Hemoglobin 12.7 g/dL (14.0-18.0); Mean Platelet Volume 7.9 fL (7.4-10.4); Platelet Count 178 10^3/uL (150-450)
[2022-02-22 07:12] LABS: Calcium 8.7 mg/dL (8.6-10.3); eGFR CKD-EPI 100.6 (>60)
[2022-02-22] MEDS ORDERED: Pneumococcal Vac 23-Polyvalent ONE (07:42)
[2022-02-22] MEDS: Magnesium Hydroxide LIQ 30 ML UDC PO SCH (07:47)
[2022-02-22] MEDS ORDERED: Vitamin THERAPEUTIC TAB PO SCH (09:00)
[2022-02-22] MEDS ORDERED: Aspirin EC 81 mg TAB.EC (enteric coated) PO SCH (09:00)
[2022-02-22 11:03] VITALS: BP 130/76
== END 2022-02-22 13:05 | disposition home or self-care (01) ==
LOC: INTOOBSV 08:44 → AA 08:44 → SSU 13:15
PROVIDERS: ADMIT Orthopaedic Surgery Adult Reconstructive Orthopaedic Surgery; ATTEND Orthopaedic Surgery Adult Reconstructive Orthopaedic Surgery